=== PATIENT | female | born 1975 | race Caucasian/White ===

== ENCOUNTER 2018-05-29 03:56 | Emergency (ER) | payer SELFPAY ==
[2018-05-29 03:56] VITALS: BMI 28.4
[2018-05-29 04:08] VITALS: BP 155/82; PULSE 91; RESP 20; TEMP 98.8; O2SAT 100
[2018-05-29] MEDS ORDERED: Neomycin/Polymyxin/Hydrocort Otic Soln BOTTLE AU STA (04:19)
--- NOTE | 2018-05-29 04:23 | C.PDOC ---
History Of Present Illness 42 year old female patient with hx of excess ear wax presents to the ER c/o b/l ear canal pain right>left for x3 days. Patient reports she uses debrox ear drops , but also irrigates her ear with water. Time Seen by Provider: 05/29/18 04:01 Chief Complaint (Nursing): ENT Problem History Per: Patient History/Exam Limitations: None Onset/Duration Of Symptoms: Days (x3) Current Symptoms Are (Timing): Still Present Past Medical History Reviewed: Historical Data, Nursing Documentation, Vital Signs Vital Signs: Last Vital Signs Temp 98.8 F 05/29/18 04:03 Pulse 91 H 05/29/18 04:03 Resp 20 05/29/18 04:03 BP 155/82 H 05/29/18 04:03 Pulse Ox 100 05/29/18 04:23 Surgical History: Tonsillectomy Family History: States: Unknown Family Hx - Social History Hx Alcohol Use: No Hx Substance Use: No - Immunization History Hx Tetanus Toxoid Vaccination: No Hx Influenza Vaccination: No Hx Pneumococcal Vaccination: No Review Of Systems Except As Marked, All Systems Reviewed And Found Negative. ENT: Positive for: Ear Pain (right > left ) Physical Exam - Physical Exam Appears: Non-toxic, No Acute Distress Skin: Normal Color, Warm, Dry Head: Atraumatic, Normacephalic Eye(s): bilateral: Normal Inspection, EOMI Ear(s): Bilateral: TM Erythema, Other (boggy) Nose: Normal Oral Mucosa: Moist Throat: Normal Neurological/Psych: Oriented x3, Normal Speech ED Course And Treatment O2 Sat by Pulse Oximetry: 100 (RA) Pulse Ox Interpretation: Normal Medical Decision Making Medical Decision Making: Impression: otitis externa R>L washing out ears with water and syringe device after [place] instructed to not irrigate ears this way. Plans: -- cortisporin otic solution Disposition Doctor Will See Patient In The: Office Counseled Patient/Family Regarding: Studies Performed, Diagnosis - Disposition Referrals: Efra Cooney MD [Staff Provider] - Disposition: HOME/ ROUTINE Disposition Time: 04:23 Condition: GOOD Additional Instructions: 3 drops of Cortisporin Otic Solution to affected ear(s) 3x/day for 5 days Prescriptions: Neomycin/Polymyxin/Hydrocort [Cortisporin Otic Soln] 3 drop OD TID #1 bottle Instructions: Outer Ear Infection Forms: [facility] (French) - Clinical Impression Clinical Impression: Otitis externa - Scribe Statement The provider has reviewed the documentation as recorded by the Scribe Becka Rich Provider Attestation: All medical record entries made by the Scribe were at my direction and personally dictated by me. I have reviewed the chart and agree that the record accurately reflects my personal performance of the history, physical exam, medical decision making, and the department course for this patient. I have also personally directed, reviewed, and agree with the discharge instructions and disposition.
== END 2018-05-29 04:30 | disposition home or self-care (01) ==
LOC: C.ER 03:56
DX: H60.93 Unspecified otitis externa, bilateral (principal)